=== PATIENT | female | born 1955 | race Caucasian/White ===

== ENCOUNTER 2017-07-26 08:50 | Day surgery (SDC) | payer OTHER ==
[~2017-07-26 08:50] MED LIST: PROPOFOL 500 MG/50 ML EMU IV ONE
[2017-07-26 10:21] VITALS: O2SAT 98
[2017-07-26 10:55] VITALS: BP 111/62; PULSE 61; RESP 20; TEMP 97.4
== END 2017-07-26 11:05 | disposition home or self-care (01) | DRG 951 ==
LOC: SURG 08:50
PROVIDERS: ATTEND Surgery
DX: Z12.11 Encounter for screening for malignant neoplasm of colon (principal); D12.3 Benign neoplasm of transverse colon
CPT/HCPCS: 99001; J2704